=== PATIENT | female | born 1990 | race Caucasian/White ===

== ENCOUNTER 2019-11-17 17:39 | Outpatient (RCR) | payer OTHER, SELFPAY | END 2020-02-15 23:59 | disposition home or self-care (01) | LOC: ANHLAB 17:39 | PROVIDERS: PCP Obstetrics & Gynecology; Visit Provider Obstetrics & Gynecology | DX: Z29.13 Encounter for prophylactic Rho(D) immune globulin (principal); O36.0130 Maternal care for anti-D [Rh] antibodies, third trimester, not applicable or unspecified; Z3A.00 Weeks of gestation of pregnancy not specified | CPT/HCPCS: 36415; 85461 ==

== ENCOUNTER 2019-11-23 03:44 | Observation (INO) | payer OTHER, SELFPAY ==
[2019-11-23] VITALS (10 sets, daily range): BP systolic 92–136; BP diastolic 59–87; PULSE 54–110; RESP 10–20; TEMP 36.5–36.8; O2SAT 99–100; BMI 23.0
--- NOTE | ~2019-11-23 | US_ITS ---
EXAMINATION: US OB <= 14 weeks fetus EXAM DATE: 11/23/2019 06:45 INDICATION: and abdominal pain. 1st trimester. TECHNIQUE: Pelvic obstetrical transabdominal sonogram was performed by a technologist. There are mu ltiple grayscale and Doppler images available for interpretation. There are no earlier studies of th is gestation for comparison. FINDINGS: Uterus measures 6.4 x 3.5 x 4.8 cm. There is intrauterine gestation sac which is abnormal in shape. Echogenic curvilinear region along the inner surface of the gestation sac which could be a pole, but no heart rate identified within this region. These are poor prognostic indicato rs for this . The 7 mm mean sac diameter corresponds to estimated gestational age by ultraso und of 5 weeks 2 days. No definitive yolk sac identified. There is no sonographic evidence of subch orionic hemorrhage. Ovaries are morphologically normal. IMPRESSION: Irregularly shaped gestation sac without definite yolk sac. Possible small pole bu t cannot confirm heart rate. Poor prognostic indicators for this but cannot confirm or excl ude viability at this time. Consider 1-2 week follow-up exam. Reviewed, dictated and finalized at location A. IMPRESSION: Irregularly shaped gestation sac without definite yolk sac. Possib le small pole but cannot confirm heart rate. Poor prognostic indicators f or this but cannot confirm or exclude viability at this time. Conside r 1-2 week follow-up exam.
--- NOTE | 2019-11-23 04:01 | ED.GENADULT ---
HPI - General Adult General Chief complaint: Vaginal Bleeding Stated complaint: abd cramping, vaginal bleeding, 7 wks preg Time Seen by Provider: 11/23/19 03:48 Source: RN notes reviewed History of Present Illness HPI narrative: Patient presents emergency department from home for vaginal bleeding. Patient states that this evening she began to have vaginal bleeding and abdominal cramping. States that she is approximately 7 weeks . States she started having spotting the beginning of this week and was seen in [facility] have beta-hCG done at that time. Patient states his symptoms worsen this evening she did take Tylenol approximately 1 AM. She denies any fevers or chills or any other symptoms Related Data Allergies Allergy/AdvReac Type Severity Reaction Status Date / Time No Known Allergies Allergy Mild Verified 03/24/11 18:46 Review of Systems Review of Systems: Narrative: Gen.: Denies fevers or chills ENT: Denies congestion Respiratory: Denies shortness of breath or cough CV: Denies chest pain or palpitations GI: See HPI reports vaginal bleeding Musculoskeletal: Denies back pain or muscle pain Neuro: Denies numbness, tingling, weakness or focal weakness Skin: Denies rash Except as documented, all other systems reviewed and negative PMFSH Past Medical History Medical History (Updated 11/23/19 @ 07:22 by Michael Sumner DO) Patient denies significant medical history Social History Social History (Updated 11/23/19 @ 04:03 by Michael Sumner DO) Smoking status: Never smoker Exam Narrative: Exam Narrative: APPEARANCE: No acute distress, nontoxic, resting in bed EYES: EOMI HEENT: Normocephalic, atraumatic, OMM RESPIRATORY: No respiratory distress Clear to auscultation bilaterally with no rhonchi wheezing or rales. CARDIOVASCULAR: Regular rate and rhythm without murmurs rubs or gallops. ABDOMINAL: Soft, nondistended, tender palpation right lower quadrant left lower quadrant, no tenderness right upper quadrant left upper quadrant, no rebound or guarding : Normal external exam, no document blood with clots in vaginal canal, cervix closed MUSCULOSKELETAl: Moves all extremities. No clubbing, cyanosis or edema. NEURO: Awake and alert. Following commands, speech normal, no focal deficits SKIN:: Warm, dry. No rashes lesions or abrasions PSYCHIATRIC: Normal affect/mood, Course Course Emergency Course: Reviewed old records. Patient with O+ blood type from earlier this week Discussed with Dr. Hall presentation work-up. Request admission to his service at this time plan for possible OR for D&C today Discussed with patient results of workup and diagnosis. Discussed need for follow-up with primary care, proper use of medication, and reasons to return to the emergency department. Patient understands and agrees to current treatment plan Vital Signs Vital signs: Vital Signs Temperature 98.3 F 11/23/19 03:47 Pulse Rate 110 H 11/23/19 03:47 Respiratory Rate 16 11/23/19 03:47 Blood Pressure 136/87 11/23/19 03:47 Pulse Oximetry 99 11/23/19 03:47 Temperature 98.2 F 11/23/19 06:53 Pulse Rate 77 11/23/19 06:53 Respiratory Rate 12 11/23/19 06:53 Blood Pressure 113/66 11/23/19 06:53 Pulse Oximetry 100 11/23/19 06:53 Medical Decision Making Vital Signs Vital Signs: Vital Signs Temperature 98.3 F 11/23/19 03:47 Pulse Rate 110 H 11/23/19 03:47 Respiratory Rate 16 11/23/19 03:47 Blood Pressure 136/87 11/23/19 03:47 Pulse Oximetry 99 11/23/19 03:47 Temperature 98.2 F 11/23/19 06:53 Pulse Rate 77 11/23/19 06:53 Respiratory Rate 12 11/23/19 06:53 Blood Pressure 113/66 11/23/19 06:53 Pulse Oximetry 100 11/23/19 06:53 Lab Data Result diagrams: 11/23/19 04:02 Labs: Lab Results 11/23/19 11/23/19 Range/Units 04:02 04:02 WBC 7.1 (4.5-10.0) K/mm3 RBC 4.42 (4.2-5.4) M/mm3 Hgb 13.5 (12.0-15.0) g/
[2019-11-23] MEDS: SODIUM CHLORIDE 0.9% IV 1,000 ML 999 ML IV CONT (04:11)
[2019-11-23 04:19] LABS: Basophils Absolute Auto 0.1 K/mm3 (0.0-0.1); Basophils Percent Auto 0.7 % (0.2-1.2); Eosinophils Absolute Auto 0.4 K/mm3 (0-0.3); Eosinophils Percent Auto 6.2 % (0-4.4); Hematocrit 39.8 % (37.0-47.0); Hemoglobin 13.5 g/dL (12.0-15.0); Immature Granulocyte Absolute 0.02 K/mm3 (0.00-0.031); Immature Granulocyte Percent A 0.3 % (0-0.5); Lymphocytes Absolute Auto 2.04 K/mm3 (0.9-3.2); Lymphocytes Percent Auto 28.7 % (18.3-44.2); Mean Corpuscular HGB Conc 33.9 g/dl (32-36); Mean Corpuscular Hemoglobin 30.5 pg (26-34); Mean Platelet Volume 9.7 fl (7.4-10.4); Monocytes Absolute Auto 0.6 K/mm3 (0.1-0.6); Monocytes Percent Auto 7.9 % (2.6-8.5); Neutrophils Percent Auto 56.2 % (45.5-73.1); Platelet Count Result 265 k/mm3 (150-375); Red Blood Count 4.42 M/mm3 (4.2-5.4); Red Cell Distribution Width 12.4 % (11.5-14.5); White Blood Count 7.1 K/mm3 (4.5-10.0)
--- NOTE | 2019-11-23 08:33 | PC.NURSE ---
This patient, Erika Weinberg, was admitted to 2 Medical Room 259-01. Patient/family oriented to hospital policies and general routines including ID bracelet, bed and alarms, visiting hours, pain management, procedures, bathroom and other care routines, personal items, smoking policy, room service/diet, and visiting hours. Valuables list has been completed. Information on how to activate the Rapid Response Team has been discussed. Patient/Family are encouraged to report perceived risks to care and to ask questions if they do not understand what they are told or what they should do.
[2019-11-23] MEDS: SODIUM CHLORIDE 0.9% IV 1,000 ML 125 ML IV CONT (10:22)
--- NOTE | 2019-11-23 10:37 | PM.IMHP ---
H&P: HPI History of Present Illness Chief complaint: demise Narrative: Erika Weinberg is a 29 year old female 1 at approximately 7 weeks gestation who presented emergency department with heavy vaginal bleeding. She had severe uterine cramping. On evaluation in the emergency department revealed an incomplete . Her bleeding is stable at this time. She states that is resolved. We talked about treatment options. She does not have a viable IUP. Does appear to products conception with blood flow within the endometrial cavity. We discussed treatment options. We talked about medical treatment, observation, and suction D&C. We discussed the risks and benefits and details each of the treatment options. She has decided on suction D& C. We discussed the procedure in detail. We discussed risk in detail. She understands that injuries may occur. She understands surgical induced resultant hospitalization, severe illness, and more surgery. She understands risk of hemorrhage and infection. Review of Systems Constitutional: Constitutional: Reports no additional constitutional complaints, Denies fatigue, Denies headache(s), Denies lethargy and Denies weakness Eyes: Eyes: Reports no additional eye complaints, Denies blurry vision and Denies photophobia ENT: Reports as per HPI, Denies headache(s) and Denies neck pain Cardiovascular: Cardiovascular: Denies chest pain, Denies diaphoresis, Denies leg edema, Denies palpitations and Denies dyspnea Respiratory: Respiratory: Denies hemoptysis, Denies dyspnea and Denies wheezing Gastrointestinal: Gastrointestinal: Denies abdominal pain, Denies melena, Denies bloating, Denies hematochezia, Denies nausea and Denies vomiting Genitourinary: Genitourinary: Reports no additional female genitourinary complaints Musculoskeletal: Musculoskeletal: Denies joint swelling, Denies neck pain, Denies numbness and Denies stiffness Neurologic: Denies Abnormal speech present, Denies confusion, Denies headache(s), Denies numbness and Denies weakness Psychiatric: Psychiatric: Denies anxiety, Denies confusion, Denies depression, Denies homicidal ideation and Denies suicidal ideation Endocrine: Endocrine: Denies fatigue and Denies palpitations Allergic/Immunologic: Allergic/Immunologic: Denies wheezing PMFSH Past Medical History Medical History (Updated 11/23/19 @ 10:41 by Cyndie Hall MD) Patient denies significant medical history Social History Social History (Updated 11/23/19 @ 04:03 by Michael Sumner DO) Smoking status: Never smoker Alcohol intake: never Substance use: never Gender identity (if verbalized by the patient): Female Spiritual care concerns: No Meds Home Medications and Allergies Home Medications Medication Instructions Recorded Confirmed Type One-A-Day Women's 1 1 tablet PO DAILY 11/23/19 11/23/19 History Allergies Allergy/AdvReac Type Severity Reaction Status Date / Time No Known Allergies Allergy Mild Verified 11/23/19 08:42 Vital Signs Vital Signs - 24 hr 11/23/19 03:47 11/23/19 06:53 11/23/19 08:17 Temperature 98.3 F 98.2 F Pulse Rate 110 H 77 70 Respiratory Rate 16 12 16 Blood Pressure 136/87 113/66 116/64 Pulse Oximetry 99 100 99 Exam Const: General: healthy appearing, comfortable and no acute distress; No confusion Orientation/consciousness: No confusion Eyes: Direct Ophthalmoscopy: No photophobia Resp: Auscultation: clear to auscultation bilaterally, no rales, no rhonchi and no wheezes Cardio: Rate: regular rate Heart sounds: no click, no murmurs and no rubs GI: Inspection: non-distended GI Palp: No abdominal tenderness Auscultation: normal bowel sounds Neuro: General: No confusion Speech: No Abnormal speech present Extrem: General: normal to inspection, no pedal edema and no calf tenderness H&P: Results Labs Labs: Short CBC 11/23/19 Range/Units 04:02 WBC 7.1 (4.5-10.0) K/mm
--- NOTE | 2019-11-23 10:49 | WPDANESEPP ---
Anes - Eval Pre Procedure Date/Time: 11/23/19 10:49 Pre Op Diagnosis: demise Patient Data Age: 29 Gender: F Height: Weight: 68 kg Last Vital Signs Temp 36.8 C 11/23/19 06:53 Pulse 70 11/23/19 08:17 Resp 16 11/23/19 08:17 BP 116/64 11/23/19 08:17 Pulse Ox 99 11/23/19 08:17 Allergies Allergy/AdvReac Type Severity Reaction Status Date / Time No Known Allergies Allergy Mild Verified 11/23/19 08:42 Home Medications Medication Instructions Recorded Confirmed Type One-A-Day Women's 1 1 tablet PO DAILY 11/23/19 11/23/19 History Laboratory Tests 11/23/19 11/23/19 04:02 04:02 WBC 7.1 K/mm3 K/mm3 (4.5-10.0) RBC 4.42 M/mm3 M/mm3 (4.2-5.4) Hgb 13.5 g/dL g/dL (12.0-15.0) Hct 39.8 % % (37.0-47.0) MCV 90.0 fl fl (80-100) MCH 30.5 pg pg (26-34) MCHC 33.9 g/dl g/dl (32-36) RDW 12.4 % % (11.5-14.5) Plt Count 265 k/mm3 k/mm3 (150-375) MPV 9.7 fl fl (7.4-10.4) Immature Gran % (Auto) 0.3 % % (0-0.5) Neut % (Auto) 56.2 % % (45.5-73.1) Lymph % (Auto) 28.7 % % (18.3-44.2) [place] % (Auto) 7.9 % % (2.6-8.5) Eos % (Auto) 6.2 % H % (0-4.4) Baso % (Auto) 0.7 % % (0.2-1.2) Lymph # (Auto) 2.04 K/mm3 K/mm3 (0.9-3.2) [place] # (Auto) 0.6 K/mm3 K/mm3 (0.1-0.6) Eos # (Auto) 0.4 K/mm3 H K/mm3 (0-0.3) Baso # (Auto) 0.1 K/mm3 K/mm3 (0.0-0.1) Abs Immat Gran (auto) 0.02 K/mm3 K/mm3 (0.00-0.031) Absolute Neuts (auto) 4.0 K/mm3 K/mm3 (1.3-6.7) Absolute Nucleated RBC 0.0 K/mm3 K/mm3 (0.0-0.012) Nucleated RBC % 0.0 % % (0.0-0.2) Beta HCG, Quant 7040.00 mIU/ML mIU/ML Patient hx anesthesia problems: none Family hx anesthesia problems: none [facility] Past Medical History Medical History Patient denies significant medical history Social History Social History Smoking status: Never smoker Alcohol intake: never Substance use: never Gender identity (if verbalized by the patient): Female Spiritual care concerns: No Exam Day of Procedure 11/23/19 10:49 Patient weight: normal Heart: regular rate and rhythm Lungs: normal air movement Airway: Mallampati scale class II Neurological: alert and oriented
--- NOTE | 2019-11-23 11:53 | WPDANESEPPF ---
Anes - Initial Pre Proc Eval Procedure: Operation Date: 11/23/19 12:00 Proposed Procedures p D&C Suction and Sharp - Cyndie Hall MD Date/Time: 11/23/19 11:53 Surgeon: Cyndie Hall MD Pre Op Diagnosis: demise Patient Data Age: 29 Gender: F Height: 1.73 m Weight: 68.6 kg Last Vital Signs Temp 36.8 C 11/23/19 06:53 Pulse 70 11/23/19 08:17 Resp 16 11/23/19 08:17 BP 116/64 11/23/19 08:17 Pulse Ox 99 11/23/19 08:17 Allergies Allergy/AdvReac Type Severity Reaction Status Date / Time No Known Allergies Allergy Mild Verified 11/23/19 08:42 Home Medications Medication Instructions Recorded Confirmed Type One-A-Day Women's 1 1 tablet PO DAILY 11/23/19 11/23/19 History Laboratory Tests 11/23/19 11/23/19 04:02 04:02 WBC 7.1 K/mm3 K/mm3 (4.5-10.0) RBC 4.42 M/mm3 M/mm3 (4.2-5.4) Hgb 13.5 g/dL g/dL (12.0-15.0) Hct 39.8 % % (37.0-47.0) MCV 90.0 fl fl (80-100) MCH 30.5 pg pg (26-34) MCHC 33.9 g/dl g/dl (32-36) RDW 12.4 % % (11.5-14.5) Plt Count 265 k/mm3 k/mm3 (150-375) MPV 9.7 fl fl (7.4-10.4) Immature Gran % (Auto) 0.3 % % (0-0.5) Neut % (Auto) 56.2 % % (45.5-73.1) Lymph % (Auto) 28.7 % % (18.3-44.2) [place] % (Auto) 7.9 % % (2.6-8.5) Eos % (Auto) 6.2 % H % (0-4.4) Baso % (Auto) 0.7 % % (0.2-1.2) Lymph # (Auto) 2.04 K/mm3 K/mm3 (0.9-3.2) [place] # (Auto) 0.6 K/mm3 K/mm3 (0.1-0.6) Eos # (Auto) 0.4 K/mm3 H K/mm3 (0-0.3) Baso # (Auto) 0.1 K/mm3 K/mm3 (0.0-0.1) Abs Immat Gran (auto) 0.02 K/mm3 K/mm3 (0.00-0.031) Absolute Neuts (auto) 4.0 K/mm3 K/mm3 (1.3-6.7) Absolute Nucleated RBC 0.0 K/mm3 K/mm3 (0.0-0.012) Nucleated RBC % 0.0 % % (0.0-0.2) Beta HCG, Quant 7040.00 mIU/ML mIU/ML Patient hx anesthesia problems: none Family hx anesthesia problems: none [facility] [place] Past Medical History Medical History Patient denies significant medical history Social History Social History Smoking status: Never smoker Alcohol intake: never Substance use: never Gender identity (if verbalized by the patient): Female Spiritual care concerns: No Anes - Eval Final PreProcedure Day of Procedure 11/23/19 11:53 Patient weight: normal Heart: regular rate and rhythm Lungs: clear to auscultation and normal air movement Airway: Mallampati scale class II Neurological: alert and oriented Last oral intake: >/= 8 hours ASA classification: I Emergent: yes Anesthetic plan: proceed Anesthesia type and monitoring: general GIVS and standard monitoring Informed Consent: The patient's anesthetic plan and its attendant risks and benefits were discussed with the patient/family/POA. Questions were solicited and answers provided to the satisfaction of the patient/family/POA.
--- NOTE | 2019-11-23 11:55 | PC.NURSE ---
To OR per bed, IV saline locked. Report given to NELIA Gibbons.
--- NOTE | 2019-11-23 12:15 | PM.PROC ---
Procedure Note - Detailed Date of procedure: 11/23/19 Pre-op diagnosis: Missed Post-op diagnosis: same Procedure performed: Suction D&C Description of procedure: The patient was taken the operating room. She has prepped and draped in dorsal lithotomy position after induction of mac anesthesia. A speculum was placed in the vagina. The cervix was grasped with a tenaculum. The cervix was injected at 3 and 9:00 a.m. with 1% lidocaine. The cervix was dilated up to 8 mm using Avila dilators. An 8 curved plastic suction curette was then applied to the intrauterine cavity. All of the surfaces in the intrauterine cavity were curettage under VAC. A sharp medium-size curette was then used to curettage all the surfaces to confirmed the removal of all the products conception. When all surfaces for bleed to be clean the curette was removed. The suction curette was then reapplied to remove all the debris. The procedure was terminated. The tenaculum was removed. The speculum was removed. The patient tolerated the procedure well. She was taken recovery room in stable condition. Anesthesia: MAC Surgeon: Cyndie Hall MD Estimated blood loss (mL): 25 Drains: No Packing: No Pathology: yes Complications: No immediate complications Condition: stable Disposition: PACU Findings: Normal vulva vagina and cervix. The moderate amounts of products conception. 8 cm uterus.
[2019-11-23] MEDS: LACTATED RINGERS 1,000 ML 30 ML IV CONT (12:17)
--- NOTE | 2019-12-24 07:47 | PM.DS ---
DS: Admitting Diagnosis Admitting Diagnosis Admitting Diagnosis: Abnormal uterine and vaginal bleeding, unspecified DS: Discharge Diagnosis Discharge Diagnosis (1) Missed : Code(s): O02.1 - Missed Status: Acute DS: Summary Hospital Course Reason for hospitalization: Missed Hospital Course: PAtient was admitted for observation for 14 hour. A suction D&C was performed for missed . She was stable, afebr, and pain was controlled throughout her stay. She was d/silas after the procedure to home. She was ambulating independently and tollerating po. Her pain was controlled throughout her stay. Status at Discharge Functional status at discharge: independent ambulation Overall status at discharge: patient is progressing back to baseline Time Spent with Patient Time attestation: Total time spent providing and/or coordinating discharge services: Time spent: Less than 30 minutes DS: Data Data Completed and Pending Completed studies during hospitalization: Pending at discharge 11/23/19 12:09 Surgical [PTH] Routine Discharge Plan Discharge Consulting providers: Toby Recinos Discharging Clinician: Cyndie Hall Patient Disposition: Home, Self-Care Activity: pelvic rest Diet: regular Patient Instructions: Antibiotic Form, Miscarriage (ED) Stand Alone Forms: General Discharge Information Follow-up/Referrals: Cyndie Hall MD [Primary Care Provider] - Discharge Medications: Continued One-A-Day Women's 1 1 tablet PO DAILY RF: 0 Date of admission: 11/23/19 07:20 Primary Care Provider: Cyndie Hall Admitting Provider: Cyndie Hall Discharge Date/Time: 11/23/19 15:10 Attending physician on admission: Cyndie Hall Condition: Stable
== END 2019-11-23 15:10 | disposition home or self-care (01) ==
LOC: ANHED 07:22 → ANH2MED 07:47
PROVIDERS: Admitting Provider Obstetrics & Gynecology; Emergency Provider Emergency Medicine; PCP Obstetrics & Gynecology; Visit Provider Obstetrics & Gynecology
PROC: (CPT 59812; principal; 2019-11-23 12:00)
DX: O02.1 Missed abortion (principal)
CPT/HCPCS: 59812; 36415; 76801; 81025; 84702; 85025; 88305; 96361; 96374; 99285; A9270; G0378; J1885; J2250; J2405; J2704; J3010; J7030; J7120

== ENCOUNTER 2020-10-01 05:59 | Observation (INO) | payer BC, SELFPAY ==
--- NOTE | 2020-10-01 05:59 | OBADM ---
This patient, Erika Weinberg, admitted to the OB room OB Post 117 for observation. Patient/family oriented to hospital policies and general routines including ID bracelet, bed and alarms, visiting hours, pain management, procedures, bathroom and other care routines, personal items, smoking policy, room service/diet, and visiting hours. Patient/Family are encouraged to report perceived risks to care and to ask questions if they do not understand what they are told or what they should do.
[2020-10-01 06:12] VITALS: BP 104/77; PULSE 90
[2020-10-01 06:13] VITALS: PULSE 85; O2SAT 100
[2020-10-01 06:15] VITALS: BP 104/77; PULSE 86; RESP 18; TEMP 36.3
[2020-10-01 06:30] VITALS: BP 104/72; PULSE 79
[2020-10-01 06:35] VITALS: BMI 28.1
[2020-10-01 07:00] VITALS: BP 100/74; PULSE 72
[2020-10-01 07:30] VITALS: BP 105/67; PULSE 73
--- NOTE | 2020-10-01 07:30 | PC.NURSE ---
Dr. Martin returned call at 0730. Dr. Martin notified regarding patient's reason for admission, history, and FHR tracing. Orders received.
--- NOTE | 2020-10-13 13:11 | PM.OBTRLD ---
OB - Triage/Final Diagnosis Visit Information Comments/Additional reasons for admission: I have assessed the risk for this patient, Erika Weinberg, and determined that she would benefit from observation care. Final Diagnosis (1) Fall (on) (from) other stairs and steps, initial encounter: Code(s): W10.8XXA - Fall (on) (from) other stairs and steps, initial encounter Status: Acute
== END 2020-10-01 07:47 | disposition home or self-care (01) ==
PROVIDERS: Admitting Provider Obstetrics & Gynecology; Visit Provider Obstetrics & Gynecology
DX: O26.893 Other specified pregnancy related conditions, third trimester (principal); W10.8XXA Fall (on) (from) other stairs and steps, initial encounter; Z3A.33 33 weeks gestation of pregnancy
CPT/HCPCS: G0378; G0379

== ENCOUNTER 2020-11-17 08:08 | Inpatient (IN) | payer BC, SELFPAY ==
[2020-11-17] VITALS (136 sets, daily range): BP systolic 92–153; BP diastolic 56–132; PULSE 42–180; RESP 16; TEMP 36.7–37.4; O2SAT 77–100; BMI 29.6
--- NOTE | 2020-11-17 08:45 | WPDOBADMIT ---
Obstetrics - Admit Note Admission Note: record reviewed. Additions to the history and/or subsequent changes in the physical findings follow. 30 y/o at 39 5/7 weeks here after a gush of clear fluid at 0730 today. SROM confirmed on L&D. GBS neg. Feeling occasional contractions. AVSS NST reactive TOCO: contractions irregularly ABD soft, nontender, gravid, vertex EXT nontender Cervix 3-4/50/-2 per RN. Vertex. A: IUP at term with SROM. P: Anticipate . Augment labor as needed.
[2020-11-17 09:16] LABS: Basophils Percent Auto 0.2 % (0.2-1.2); Eosinophils Absolute Auto 0.1 K/mm3 (0-0.3); Eosinophils Percent Auto 1.2 % (0-4.4); Hematocrit 37.1 % (37.0-47.0); Hemoglobin 12.2 g/dL (12.0-15.0); Immature Granulocyte Absolute 0.05 K/mm3 (0.00-0.031); Immature Granulocyte Percent A 0.5 % (0-0.5); Lymphocytes Absolute Auto 1.39 K/mm3 (0.9-3.2); Lymphocytes Percent Auto 13.5 % (18.3-44.2); Mean Corpuscular HGB Conc 32.9 g/dl (32-36); Mean Corpuscular Hemoglobin 29.8 pg (26-34); Mean Corpuscular Volume 90.5 fl (80-100); Mean Platelet Volume 10.5 fl (7.4-10.4); Monocytes Absolute Auto 0.8 K/mm3 (0.1-0.6); Monocytes Percent Auto 7.6 % (2.6-8.5); Platelet Count Result 234 k/mm3 (150-375); Red Cell Distribution Width 13.2 % (11.5-14.5); White Blood Count 10.3 K/mm3 (4.5-10.0)
--- NOTE | 2020-11-17 09:16 | WPDANESEPP ---
Anes - Eval Pre Procedure Procedure: Labor Epidural Date/Time: 11/17/20 09:16 Pre Op Diagnosis: LEAKING FLUID Patient Data Age: 30 Gender: F Height: Weight: Last Vital Signs Pulse 87 11/17/20 08:45 BP 114/78 11/17/20 08:45 Allergies Allergy/AdvReac Type Severity Reaction Status Date / Time No Known Allergies Allergy Mild Verified 10/01/20 06:42 Home Medications Medication Instructions Recorded Confirmed Type One-A-Day Women's 1 1 tablet PO DAILY 11/23/19 10/01/20 History Laboratory Tests 11/17/20 11/17/20 08:52 08:52 WBC Pending RBC Pending Hgb Pending Hct Pending MCV Pending MCH Pending MCHC Pending RDW Pending Plt Count Pending MPV Pending Immature Gran % (Auto) Pending Neut % (Auto) Pending Lymph % (Auto) Pending [place] % (Auto) Pending Eos % (Auto) Pending Baso % (Auto) Pending Lymph # (Auto) Pending [place] # (Auto) Pending Eos # (Auto) Pending Baso # (Auto) Pending Abs Immat Gran (auto) Pending Absolute Neuts (auto) Pending Absolute Nucleated RBC Pending Nucleated RBC % Pending RPR Pending Patient hx anesthesia problems: none Family hx anesthesia problems: none PMFSH Past Medical History Medical History (Updated 11/17/20 @ 09:17 by Rosalino Rush CRNA) Patient denies significant medical history Family History Family History Grandparent Breast cancer in female Father High cholesterol Mother Fibromyalgia Social History Social History Smoking status: Never smoker Alcohol intake: never Substance use: never Gender identity (if verbalized by the patient): Female Spiritual care concerns: No Exam Day of Procedure 11/17/20 09:16
--- NOTE | 2020-11-17 09:29 | LDADM ---
This patient, Erika Weinberg, was admitted to Labor/Delivery/Recovery 105 on 11/17/20 at 08:08. Plans for labor, pain management and were discussed with patient. Patient/family oriented to hospital policies and general routines including ID bracelet, bed and alarms, visiting hours, pain management, procedures, bathroom and other care routines, personal items, smoking policy, room service/diet and guest tray routines, infant security routines, and visiting hours. Patient/Family are encouraged to report perceived risks to care and to ask questions if they do not understand what they are told or what they should do. See OBIX for further documentation.
[2020-11-17 12:44] LABS: Rapid Plasma Reagin Non-Reactive (NonReactive)
--- NOTE | 2020-11-17 12:45 | PM.OBPNLAB ---
Pain Control Date/time seen: 11/17/20 12:45 Comments: Feeling more contractions Pelvic Exam Dilation (cm): 4 Effacement (%): 90 station: -2 Contractions Contraction frequency: 5 Status status: Category l Assessment and Plan Comments: A: IUP at term with SROM / labor. P: IUPC placed. Augment labor with oxytocin as needed.
[2020-11-17] MEDS: LACTATED RINGERS 1,000 ML 125 ML IV CONT ×2 (13:06→13:55)
[2020-11-17] MEDS: OXYTOCIN 30 UNITS/NS 500 ML 30 UNITS/500 ML BAG 6 UNITS IV CONT (13:06)
--- NOTE | 2020-11-17 17:13 | PM.OBPNLAB ---
Pain Control Date/time seen: 11/17/20 17:13 Comments: Comfortable with epidural. Pelvic Exam Dilation (cm): 7 Effacement (%): 100 station: 0 Contractions Contraction frequency: 3 Contraction pattern: Regular Status status: Category l Assessment and Plan Comments: Continue labor augmentation. Anticipate .
--- NOTE | 2020-11-17 18:37 | PM.OBPNLAB ---
Pain Control Date/time seen: 11/17/20 18:37 Pelvic Exam Dilation (cm): 10 Effacement (%): 100 station: +2 Contractions Contraction frequency: 3 Contraction pattern: Regular Status status: Category l Assessment and Plan Comments: Begin pushing.
--- NOTE | 2020-11-17 19:33 | PM.OBPRVD ---
OB - Delivery Note Procedure Delivery date: 11/17/20 Procedure: Induction method: none Delivery augmentation: pitocin Delivery monitor: external FHT, external uterine and internal uterine Route of delivery: Laceration Description: Perineal - 2nd Degree Delivery repair: vicryl (3-0) Specimen: Yes (cord blood) Quantitative Blood Loss (ml): 130 Anesthesia type: Epidural Disposition: PACU Complications: None Narrative: 30 y/o at 39 5/7 weeks gestation who presented to the hospital after a gush of fluid. SROM was diagnosed. Labor was subsequently augmented. She received an epidural for pain control. Her labor progressed and her cervix dilated completely. She pushed with good effort and delivered the infant's head to the perineum, followed by the body. The nose and mouth were bulb suctioned. After a delay, the cord was clamped and cut. The infant was handed off the field. Cord blood was collected. The placenta delivered spontaneously and was grossly normal in appearance. The usual 3 vessel cord was noted. A second degree midline perineal laceration was sustained. This was reapproximated using 3 0 Vicryl in the usual layered fashion. A right-sided periurethral laceration was reapproximated with a single figure of eight suture of the same material. Excellent hemostasis resulted as did excellent reapproximation of the normal anatomy. Needle and instrument counts were correct. The patient was taken to recovery room in stable condition. The infant went to the nursery in stable condition. I was present and scrubbed for the entire delivery. [place] Baby Date of : 11/17/20 Time of : 19:33 Weeks of gestation at delivery: 39 Infant gender: Female Weight (pounds): 6 Weight (ounces): 10 presentation: vertex position: Right Occiput Anterior Placenta delivery description: Spontaneous and Normal Configuration cord vessel description: 3 Vessels and Delayed Cord Clamping score one minute: 9 score five minutes: 9
--- NOTE | 2020-11-17 19:35 | P.DS_ITS ---
DS: Admitting Diagnosis Admitting Diagnosis Admitting Diagnosis: IUP at 39 5/7 weeks SROM DS: Discharge Diagnosis Discharge Diagnosis (1) (normal spontaneous vaginal delivery): Code(s): O80 - Encounter for full-term uncomplicated delivery Status: Acute OB - DS: Summary OB Procedures : None OB Procedures Intrapartum: Spontaneous Vag Delivery OB Procedures: : None DS: Data Data Completed and Pending Labs on day of discharge: Labs from last 24 hours 11/17/20 11/17/20 11/17/20 08:52 08:52 08:52 WBC 10.3 H RBC 4.10 L Hgb 12.2 Hct 37.1 MCV 90.5 MCH 29.8 MCHC 32.9 RDW 13.2 Plt Count 234 MPV 10.5 H Immature Gran % (Auto) 0.5 Neut % (Auto) 77.0 H Lymph % (Auto) 13.5 L [place] % (Auto) 7.6 Eos % (Auto) 1.2 Baso % (Auto) 0.2 Lymph # (Auto) 1.39 [place] # (Auto) 0.8 H Eos # (Auto) 0.1 Baso # (Auto) 0.0 Abs Immat Gran (auto) 0.05 H Absolute Neuts (auto) 8.0 H Absolute Nucleated RBC 0.0 Nucleated RBC % 0.0 RPR Non-reactive Blood Type O Positive Antibody Screen Negative Discharge Plan Discharge Attending physician on discharge: Topher Martin Discharging Clinician: Topher Martin Patient Disposition: Home, Self-Care Activity: pelvic rest Diet: regular Discharge Instructions: Call or return if temperature above 100.4? F, increased abdominal pain, increased vaginal bleeding or any new problems. Stand Alone Forms: General Discharge Information Follow-up/Referrals: Topher Martin MD [Physician] - 6 Weeks Discharge Medications: New ibuprofen 600 mg tablet 600 mg PO Q6H PRN (Reason: cramps) Qty: 30 RF: 0 No Action One-A-Day Women's 1 1 tablet PO DAILY RF: 0 Date of admission: 11/17/20 08:08 Primary Care Provider: PHYSICIAN,WELT ROUGHER Admitting Provider: Topher Martin Attending physician on admission: Topher Martin Condition: Stable
[2020-11-17] MEDS: OXYTOCIN 30 UNITS/NS 500 ML 30 UNITS/500 ML BAG 125 UNITS IV CONT (19:53)
[2020-11-17] MEDS: IBUPROFEN 600 MG TABLET PO (22:17)
[2020-11-17] MEDS: WITCH HAZEL 40 PADS 1 PAD TOPICAL (22:17)
[2020-11-17] MEDS: BENZOCAINE 20% AER SPR (*SP) 56 GM CAN 1 SPRAY TOPICAL (22:17)
[2020-11-18 04:00] VITALS: BP 112/75; PULSE 78; RESP 16; TEMP 36.7
[2020-11-18] MEDS: IBUPROFEN 600 MG TABLET PO ×4 (04:00→23:14)
[2020-11-18 05:24] LABS: Hematocrit 35.9 % (37.0-47.0); Hemoglobin 11.6 g/dL (12.0-15.0)
[2020-11-18 08:30] VITALS: PULSE 82; RESP 16; O2SAT 98
--- NOTE | 2020-11-18 08:39 | WPDANLDPN2 ---
Anes-Prog Note L&D Date/Time: 11/18/20 08:39 Comfortable throughout: labor and delivery Neuraxial method: epidural Epidural/Spinal procedure site: clean & non-tender Neuro status: Neuro function grossly intact. Cardiovascular status: normal Respiratory status: normal Airway patency: baseline Mental status: baseline Post-Op hydration status: normal Vital Signs: Last Vital Signs Temp 36.7 C 11/18/20 04:00 Pulse 78 11/18/20 04:00 Resp 16 11/18/20 04:00 BP 112/75 11/18/20 04:00 Pulse Ox 85 L 11/17/20 18:59 Pain score (VAS): 0/10. Patient resting in bed at time of assessment, appears comfortable. Support person at bedside. I/O: Intake & Output 11/17/20 11/18/20 11/18/20 23:59 07:59 15:59 Intake Total 1500 Balance 1500 Post-procedural complaints: none Patient feedback: Patient satisfied with anesthetic care.
[2020-11-18 08:49] VITALS: BP 102/68; PULSE 65; RESP 20; TEMP 36; O2SAT 98
[2020-11-18] MEDS: MULTIVIT/MIN/PREN/FOL AC/IRON TABLET 1 TAB PO (10:42)
[2020-11-18] MEDS: DOCUSATE SODIUM 100 MG CAPSULE PO (10:42)
--- NOTE | 2020-11-18 11:00 | PC.NURSE ---
Mother called out for assist with feeding, reporting has been sleepy this morning. Mother reports slight tenderness with feeding and taking several attempts before infant is latching more difficult to right. Skin is intact bilat. not redness noted. Nipple care reviewed of lanolin after feedings, warm compresses as needed Reviewed feeding cues, frequencies, duration of feedings, feeding elimination flow sheet, and signs of adequate intake. Demonstrated stimulation techniques to wake for feeding. Assisted with to breast. Reviewed positioning/alignment in cross cradle, holding breast in ?U? hold and guided asymmetrical latch on. Infant able to latch correctly. Infant nursed eagerly, with steady draws and frequent swallowing for bursts followed with long pausing. Reviewed signs of a correct latch, effective nursing and suck swallow ratio. Infant would slip to shallow latch with pausing, mother reports tenderness. Demonstrated how to adjust latch more deeply while feeding. Mother reports she can feel change in latch and has no tenderness. . Suggested mother stimulate while feeding to increase stimulate, increase intake and to assist with maintaining deep latch. Instructed mother to call out for RN assistance if she is unable to latch for feeding or she has discomfort with nursing. Instructed feeding should be initiated three hours from start of last feeding or if feeding cues are noted before. Mother voiced understanding of information shared.
--- NOTE | 2020-11-18 12:00 | PC.NURSE ---
Mother called out for assist with latching to right breast. Mother states she has attempted several times and unable to latch. Right areola is more firm and nipple is not as full as left. Discussed infant may need a different position or work more with rolling nipple before attempting to latch. Reviewed infant feeding cues, frequencies, duration of feedings, feeding elimination flow sheet, and signs of adequate intake. Demonstrated stimulation techniques to wake infant for feeding. Assisted with to breast. Reviewed positioning/alignment in cross cradle, holding breast in ?U? hold and guided asymmetrical latch on. Infant able to latch correctly. nursed eagerly, with steady draws and frequent swallowing for bursts followed with long pausing. Reviewed signs of a correct latch, effective nursing and suck swallow ratio. Infant would slip to shallow latch with pausing, mother reports tenderness. Demonstrated how to adjust latch more deeply while feeding. Mother reports she can feel change in latch and has no tenderness. Suggested mother stimulate while feeding to increase stimulate, increase intake and to assist with maintaining deep latch. Instructed mother to call out for RN assistance if she is unable to latch for feeding or she has discomfort with nursing. Instructed feeding should be initiated three hours from start of last feeding or if feeding cues are noted before. Mother voiced understanding of information shared.
[2020-11-18 12:46] VITALS: BP 100/64; PULSE 82; RESP 16; TEMP 37.3; O2SAT 98
--- NOTE | 2020-11-18 12:52 | PM.OBPNVD ---
OB - PN: Subj Subjective Date/time seen: 11/18/20 12:52 Narrative: Pain OK. OB - PN: Obj Data Labs CBC & Chem 7: 11/18/20 04:01 Labs: Laboratory Results - last 24 hr 11/18/20 04:01 Hgb 11.6 L Hct 35.9 L OB - PN A/P Plan Comments: A: PPD#1, doing well. P: Routine care. Exam Psych: Other: AVSS ABD soft, nontender, fundus firm EXT nontender
[2020-11-18] MEDS: TETANUS,DIPHTHERIA,AC PERTUSSIS ADULT (0.5 ML) BOOSTRIX IM (17:21)
[2020-11-18 17:43] VITALS: BP 114/80; PULSE 72; RESP 16; TEMP 36.9; O2SAT 99
[2020-11-18 18:35] VITALS: BP 109/72; PULSE 81; RESP 16; RESP 18; TEMP 37; O2SAT 99
[2020-11-19 07:30] VITALS: PULSE 81; RESP 18; O2SAT 99
[2020-11-19 07:45] VITALS: BP 94/47; PULSE 68; RESP 16; TEMP 36.9; O2SAT 99
[2020-11-19] MEDS: IBUPROFEN 600 MG TABLET PO (08:42)
[2020-11-19] MEDS: DOCUSATE SODIUM 100 MG CAPSULE PO (08:42)
[2020-11-19] MEDS: MULTIVIT/MIN/PREN/FOL AC/IRON TABLET 1 TAB PO (08:42)
--- NOTE | 2020-11-19 09:06 | PM.OBPNVD ---
OB - PN: Subj Subjective Date/time seen: 11/19/20 09:06 Narrative: Pain OK. Would like to go home. OB - PN: Obj Data Labs CBC & Chem 7: 11/18/20 04:01 OB - PN A/P Plan Comments: A: PPD#2, doing well. P: Home to f/u 6 weeks. Exam Psych: Other: AVSS ABD soft, nontender, fundus firm EXT nontender
--- NOTE | 2020-11-19 10:13 | PC.NURSE ---
Addendum entered by Lashae Hewitt RN 11/19/20 10:18: Mom shown how to do compression at the breast during feedings and encouraged to feed infant as much as infant desires to go to breast to help with jaundice and weight gain. Original Note: Mother verbalizes she is able to independently latch infant with appropriate positioning/alignment. She reports minimal nipple discomfort, is feeding as required and waking infant to feed if needed. Mom states that one nipple is less erect and she has to work to get it pulled out. Mom given latch assist and shown how to use it. Infant has had 9 effective feedings in the past 24 hours, and is currently meeting outcomes for weight, output, jaundice and feeding frequencies. Mother states she feels confident to continue effective at home. Mom has follow up appt for tomorrow. Reviewed transition to breast milk, signs of adequate intake, and engorgement/relief. Instructed to call ICP if intake/output less than required. Reviewed community resources on the [facility] website and in the Mom/Baby guide. Information on outpatient services provided. Mother has no further questions at this time. Mom encouraged to call with next breastfeed to have assessed.
--- NOTE | 2020-11-19 11:04 | PC.NURSE ---
Consulted with patient, Mother independently putting to breast and relatched as needed. Infant tends to favor left breast. Encouraged mom to keep trying both breasts. off and on right breast so mom moved to left breast and latched well and stayed on breast. After eating on left mom switched to right and nursed well on this side. Mom is going to start offering left first and right second to see if is then more patient on right side.Reviewed positioning/alignment, holding breast and asymmetrical latch on. was able to latch correctly. nursed eagerly, with steady draws and frequent swallowing noted. Reviewed signs of a correct latch, effective nursing and suck swallow ratio. was able to maintain latch without discomfort to mother. Instructed feeding should be initiated three hours from start of last feeding or if feeding cues are noted before. Mother voiced understanding of information shared.
--- NOTE | 2020-11-19 11:39 | PC.NURSE ---
Patient viewed the discharge video Mother & Baby Care, The First Two Weeks . Patient was given the opportunity and encouraged to ask questions. Patient verbalized understanding of information shared and has been given the mother/baby guide for home reference.
[2020-11-20 11:32] VITALS: BP 111/81; PULSE 92; RESP 20; TEMP 36.9; O2SAT 100
== END 2020-11-19 12:00 | disposition home or self-care (01) | DRG 807 ==
LOC: ANHLDR 19:36 → ANHOB2 22:41
PROVIDERS: Admitting Provider Obstetrics & Gynecology; Visit Provider Obstetrics & Gynecology
DX: O36.8330 Maternal care for abnormalities of the fetal heart rate or rhythm, third trimester, not applicable or unspecified (principal); Z37.0 Single live birth; Z3A.39 39 weeks gestation of pregnancy; O70.1 Second degree perineal laceration during delivery; O71.82 Other specified trauma to perineum and vulva
CPT/HCPCS: 36415; 85014; 85018; 85025; 86592; 86850; 86900; 86901; 90715; A9270; J2590; J2795; J7120